=== PATIENT | male | born 1995 | race Caucasian/White ===

== ENCOUNTER 2016-04-06 03:02 | Emergency (ER) | payer OTHER ==
[~2016-04-06] VITALS: Ht 180.3 cm; Wt 68.2 kg
[2016-04-06 03:07] VITALS: BP 124/76; PULSE 71; RESP 16; O2SAT 98
--- NOTE | 2016-04-06 03:22 | ED.REPORT ---
HPI-Chest Pain Under 40 Date of Service Apr 06, 2016 ED Provider: Venkatesh Matias MD Patient is a 20 year old male who presents to the ED with waxing and waning left sided chest pain that began yesterday afternoon. He reports radiation of his pain into his back with associated shortness of breath. He denies any change to his pain with deep breath or movement. The patient states that he has a rib out of place and is therefore at an increased risk for pneumothorax per his doctor. He also recently feel while skating, landing on his left shoulder. He admits to sometimes using marijuana. Patient denies methamphetamine or cocaine abuse. He has not taken any medication for his chest discomfort. He denies fever, cough, or other cold-like symptoms. Nursing Notes Stated Complaint: L SIDED CHEST PAIN/DIFFICULTY BREATHING Chief Complaint: Chest Pain Nursing Notes Reviewed: Yes Allergies: Coded Allergies: No Known Allergies (Unverified , 04/06/16) General Time Seen by MD: 03:20 Chief Complaint Chest pain, Shortness of breath Hx Obtained From: Patient Arrived By: Walk-in Sudden in Onset?: No Onset Occurred: 9 - 12 hours ago Symptom Duration: Since onset Location: : Chest left Quality: Painful Radiation: : Back Severity: Current: Moderate Severity: Maximum: Moderate Recent Healthcare: No recent doctor visit, No recent hospitalization Similar Sx Previous: No Past Medical History Past Medical History rib out of place per patient Past Surgical History none reported Smoking History Unknown if Ever Smoker Social History Drug Use: THC Other Social History: Good social support, Local resident Ambulatory Status Independent Review of Systems Constitutional: Denies: Chills Respiratory: Reports: Shortness of breath, Denies: Non-productive cough Cardiovascular: Reports: Chest pain, Denies: Palpitations Complete sys rev & neg: except as marked. Physical Exam Initial Vital Signs Vital Signs (First) Date Time Temp Pulse Resp B/P Pulse Ox O2 Delivery O2 Flow Rate FiO2 04/06/16 03:07 36.2 71 16 124/76 98 Room Air Initial VS: Reviewed, Vital signs normal Head / Eyes: Atraumatic, Normocephalic, PERRL ENT: Mucous membranes moist, Conjunctiva normal, No scleral icterus Neck: Supple, Non-tender Abdomen / GI: Soft, Non-tender Extremities: Vascular intact, Neuro intact Skin: Warm, Dry, No cyanosis Neurologic: Alert, Oriented, Nonfocal Psychiatric: Mood/affect normal, Behavior normal, Normal thought content General/Constitutional: Awake, Alert, No acute distress, Well hydrated Respiratory / Chest: Breath sounds NL, Breath sounds = bilat, No respiratory distress, No rales, No rhonchi, No wheezing, No chest tenderness, No chest wall deformity Cardiovascular: Heart rate NL, Regular rhythm, Heart sounds NL, No gallop, No murmurs, No rubs Interpretation & Diagnostics Lab Results Interpretation Test 04/06/16 03:30 D-Dimer < 0.5mg/L (<0.50) Lab Results Interpretation: D-dimer negative ECG Interpretation Time: 03:16 Interpreted by: ED physician Normal ECG Interpretation: Normal ECG w/ rate of... (76), No acute ischemic changes X-Ray Chest Interpretation Chest Xray Interpretation: Impression: No acute cardiopulmonary process. View: AP & lat Interpretation / Wet Read by: Wet read ED physician Re-Eval/Medical Decision Med Decision/Clinical Course 20-year-old with pleuritic left-sided chest pain. D-dimer is negative and chest x-ray is normal. Pain is now totally resolved. Source of Hx: Old records Re-Evaluation/Progress : Time of Eval: 04:43 Patient Status: Condition improved Re-Evaluation/Progress Note: Patient was informed that his EKG, chest x-ray, and D-dimer is negative. He feels much improved. Patient understands and agrees with the plan to be discharged home. Discharge instructions and follow-up discussed. All questions were addressed. Return to the ED warnings given. Counseled Regarding: Diagnosis, Lab results, Need for follow-up, When/why to return to ED Discharge & Departure Primary Impression: Non-cardiac chest pain Disposition: Home Discharge Condition All VS Reviewed: Yes Condition: Stable Patient Instructions: Chest Pain (ED) Additional Instructions: No dangerous cause is found for your chest pain. The chest x-ray is normal with no evidence of pneumonia or collapsed lung. The D-dimer test is normal, making a blood clot very unlikely. Tylenol and/or ibuprofen as needed for pain. Follow up with your regular doctor as needed. Return to the emergency room if you significantly worsen again. Referrals: Kalpaan Todd (PCP) Scribe Attestation Portions of this note were transcribed by Catalina Delgado. I, Dr. Matias personally performed the history, physical exam and medical decision-making; I reviewed and confirmed the accuracy of the information in the transcribed note. Signed by: Ed Saenz, 04/06/2016 [id number] copies to: Kalpana Todd Howard L MD Apr 06, 2016 03:22 Catalina Delgado Apr 06, 2016 03:30
[2016-04-06 04:50] VITALS: BP 126/78; PULSE 70; RESP 18; O2SAT 99
--- NOTE | 2016-04-06 08:20 | DRSVH ---
PROCEDURE: X-RAY CHEST, TWO VIEWS ([id number]) INDICATIONS: chest pain TECHNIQUE: 2 views of the chest were acquired. COMPARISON: None. FINDINGS: Surgical changes and devices: None. Lungs and pleura: No pleural effusions or pneumothorax. Lungs are clear. Mediastinum: Mediastinal contours are normal. Heart size is normal. Bones and chest wall: No suspicious bony abnormalities. Soft tissues appear unremarkable. IMPRESSION: 1. No acute cardiopulmonary disease. Dictated by: Adi Hirsch M.D. on 04/06/2016 at 8:18 Approved by: Adi Hirsch M.D. on 04/06/2016 at 8:18
== END 2016-04-06 04:51 | disposition home or self-care (01) ==
LOC: SED 03:02
DX: R07.89 Other chest pain (principal); R06.02 Shortness of breath